=== PATIENT | female | born 1985 | race African-American/Black ===

== ENCOUNTER 2020-12-14 15:16 | Emergency (ER) | payer OTHER ==
[2020-12-14 15:28] VITALS: BMI 36.2
[2020-12-14 17:05] VITALS: BP 110/61; TEMP 98.5
[2020-12-14 17:59] VITALS: PULSE 107
== END 2020-12-14 17:52 | disposition home or self-care (01) ==
LOC: JER 15:16
DX: R00.0 Tachycardia, unspecified (principal)
CPT/HCPCS: 93005; 93010; 99281-25

== ENCOUNTER 2020-12-19 05:00 | Inpatient (IN) | payer OTHER ==
[2020-12-19] MEDS ORDERED: DEXTROSE 5%-LACTATED RINGERS 1,000 ML IV SCH (05:30)
[2020-12-19 06:26] LABS: BASO % 0.1 % (0-2.0); HEMATOCRIT 29.5 % (32.4-45.2); HEMOGLOBIN 9.8 GM/dL (10.7-15.3); LYMPH % 7.4 % (8-40); MCH 25.7 pg (25.7-33.7); MCHC 33.2 g/dl (32.0-36.0); MEAN CELL VOLUME 77.5 fl (80-96); MEAN PLT VOLUME 8.9 fl (7.5-11.1); MONO % 3.7 % (3.8-10.2); NEUT % 88.8 % (42.8-82.8); PLATELET COUNT 376 K/MM3 (134-434); RBC 3.81 M/mm3 (3.60-5.2); RDW 18.5 % (11.6-15.6); WHITE BLOOD COUNT 16.1 K/mm3 (4.0-10.0)
[2020-12-19 06:31] LABS: INR 1.05 (0.83-1.09); PROTHROMBIN TIME (PATIENT) 12.7 SEC (9.7-13.0)
[2020-12-19 06:34] LABS: ACTIVATED PTT 28.7 SECONDS (25.2-36.5)
[2020-12-19 06:49] LABS: CALCIUM 8.6 mg/dL (8.5-10.1)
[2020-12-19 06:51] LABS: BLOOD UREA NITROGEN 6.9 mg/dL (7-18)
[2020-12-19 06:53] LABS: CREATININE 0.6 mg/dL (0.55-1.3)
[2020-12-19] MEDS ORDERED: FENTANYL/BUPIVACAINE/NS/PF - PCEA - 50 ML DISP.SYRIN EP ONE (07:08)
[2020-12-19] MEDS ORDERED: ELECTROLYTE-148 SOLN 1,000 ML IV SCH ×3 (07:15→09:15)
[2020-12-19] MEDS ORDERED: BUTORPHANOL TARTRATE 2 MG/ML VIAL ONE ×2 (07:18→12:42)
[2020-12-19] MEDS ORDERED: PROMETHAZINE HCL 25 MG/1 ML VIAL ONE ×2 (07:18→12:42)
[2020-12-19] MEDS ORDERED: PROMETHAZINE HCL 25 MG/1 ML VIAL IVPB ONE ×2 (07:20→12:30)
[2020-12-19] MEDS ORDERED: BUTORPHANOL TARTRATE 2 MG/ML VIAL IVPB ONE ×2 (07:20→12:30)
[2020-12-19 07:22] VITALS: BMI 35.2
[2020-12-19] MEDS ORDERED: OXYTOCIN 30 UNITS in 0.9% NS 30 UNIT/500 ML INFUS.BAG IVPB ONE (08:20)
[2020-12-19] MEDS ORDERED: PENICILLIN G POTASSIUM 20,000,000 (20Mm) UNITS VIAL IVPB ONE (11:13)
[2020-12-19] MEDS ORDERED: PENICILLIN G POTASSIUM 20,000,000 (20Mm) UNITS VIAL IVPB SCH (11:30)
[2020-12-19] MEDS ORDERED: PENICILLIN G POTASSIUM 5,000,000 UNIT in DEXTROSE 5%-WATER - 250 ML IVPB ONE (12:00)
[2020-12-19] MEDS ORDERED: OXYTOCIN 30 UNITS in 0.9% NS 30 UNIT/500 ML INFUS.BAG IVPB SCH (16:00)
[2020-12-19] MEDS ORDERED: PENICILLIN G POTASSIUM 2,500,000 UNIT in DEXTROSE 5%-WATER - 250 ML IVPB SCH (16:00)
[2020-12-19] MEDS ORDERED: PCA PUMP NR ONE (17:52)
[2020-12-19] MEDS ORDERED: BUPIVACAINE HCL/PF 0.25% (2.5MG/ML) 10 ML VIAL ONE (18:23)
[2020-12-19] MEDS ORDERED: NALOXONE HCL 0.4 MG/ML VIAL IVPUSH PRN ×2 (18:29→18:30)
[2020-12-19] MEDS ORDERED: FENTANYL/BUPIVACAINE/NS/PF - PCEA - 50 ML DISP.SYRIN EP SCH (18:30)
[2020-12-19] MEDS ORDERED: LIDOCAINE HCL 1% PRESERVATIVE FREE - 30ML VIAL ONE (19:15)
[2020-12-19] MEDS ORDERED: OXYTOCIN 20 UNITS in 0.9% NS 20 UNIT/1,000 ML INFUS.BAG IV ONE (19:15)
[2020-12-19] MEDS: metoPROLOL SUCCINATE 25 MG TAB.SR.24H (FP) PO SCH (20:38)
[2020-12-19 23:24] LABS: CORD BASE EXCESS -6.7 mmol/L (0-2); CORD HCO3 21.1 mmHg (20-29); CORD PCO2 51.4 mmHg (30-78); CORD pH 7.232 (7.14-7.44)
[2020-12-20] MEDS ORDERED: WITCH HAZEL 50% (TUCKS) 40 PAD/JAR PAD TP PRN (01:32)
[2020-12-20] MEDS ORDERED: IBUPROFEN 600 MG TABLET (FP) PO PRN (01:32)
[2020-12-20] MEDS ORDERED: BENZOCAINE 28 GM HEMORRHOIDAL OINTMENT TP PRN (01:32)
[2020-12-20] MEDS ORDERED: BENZOCAINE 20% 57 GM BOTTLE TP PRN (01:32)
[2020-12-20] MEDS ORDERED: BISACODYL 10 MG SUPP.RECT RC PRN (01:32)
[2020-12-20] MEDS ORDERED: IBUPROFEN 600 MG TABLET (FP) PO ONE (01:55)
[2020-12-20] MEDS ORDERED: ACETAMINOPHEN 325 MG TABLET (FP) ONE (01:55)
[2020-12-20] MEDS: ACETAMINOPHEN 325 MG TABLET (FP) PO PRN (02:04)
[2020-12-20] MEDS: FERROUS SO4 325 MG TABLET (FP) PO SCH ×3 (09:18→18:00)
[2020-12-20] MEDS: metoPROLOL SUCCINATE 25 MG TAB.SR.24H (FP) PO SCH ×2 (09:19→21:34)
[2020-12-20] MEDS: PRENATAL VITAMINS W/ FOLIC ACID TABLET (FP) PO SCH (09:19)
[2020-12-20] MEDS: IBUPROFEN 400 MG TABLET (FP) PO PRN ×2 (16:26→21:34)
[2020-12-21] MEDS: FERROUS SO4 325 MG TABLET (FP) PO SCH ×3 (07:36→17:28)
[2020-12-21 08:53] LABS: BASO % 0.3 % (0-2.0); EOS % 0.7 % (0-4.5); HEMATOCRIT 27.4 % (32.4-45.2); MCH 25.9 pg (25.7-33.7); MEAN CELL VOLUME 78.4 fl (80-96); MEAN PLT VOLUME 8.5 fl (7.5-11.1); MONO % 6.4 % (3.8-10.2); NEUT % 72.6 % (42.8-82.8); PLATELET COUNT 343 K/MM3 (134-434); RBC 3.49 M/mm3 (3.60-5.2); RDW 18.6 % (11.6-15.6); WHITE BLOOD COUNT 16.8 K/mm3 (4.0-10.0)
[2020-12-21 09:43] LABS: ANISOCYTOSIS 2+; MACROCYTOSIS 0; PLATELET ESTIMATE NORMAL
[2020-12-21] MEDS: metoPROLOL SUCCINATE 25 MG TAB.SR.24H (FP) PO SCH ×2 (09:49→21:35)
[2020-12-21] MEDS: PRENATAL VITAMINS W/ FOLIC ACID TABLET (FP) PO SCH (09:57)
[2020-12-21] MEDS: ACETAMINOPHEN 325 MG TABLET (FP) PO PRN (10:03)
[2020-12-21 21:44] VITALS: BP 132/82; PULSE 104; TEMP 98.5
== END 2020-12-21 23:12 | disposition home or self-care (01) | DRG 560 ==
LOC: JLDR 05:00 → J3W 12-20 02:49
PROVIDERS: ADMIT Obstetrics & Gynecology Maternal & Fetal Medicine; ATTEND Obstetrics & Gynecology Maternal & Fetal Medicine
PROC: 0HQ9XZZ Repair Perineum Skin, External Approach (ICD-10-PCS; principal; 2020-12-19)
PROC: 10D07Z6 Extraction of Products of Conception, Vacuum, Via Natural or Artificial Opening (ICD-10-PCS; 2020-12-19)
DX: O99.42 Diseases of the circulatory system complicating childbirth (principal); R00.0 Tachycardia, unspecified; O70.0 First degree perineal laceration during delivery; Z3A.38 38 weeks gestation of pregnancy; Z37.0 Single live birth
CPT/HCPCS: 36415; 36600; 59409; 72170-TC-FY; 80048; 82803; 85025; 85610; 85730; 86762; 86850; 86900; 86901; 87340; 93306-TC; 97116-GP; 97161-GP; C9803; U0003; U0005

== ENCOUNTER 2022-06-07 10:30 | Inpatient (IN) | payer OTHER ==
[2022-06-07] MEDS ORDERED: morphine SULFATE 4 MG/ML VIAL IVPB ONE ×2 (11:57→21:30)
[2022-06-07 12:03] LABS: BASO % 0.2 % (0-2.0); HEMATOCRIT 36.1 % (32.4-45.2); HEMOGLOBIN 12.2 GM/dL (10.7-15.3); LYMPH % 12.1 % (8-40); MCH 27.1 pg (25.7-33.7); MCHC 33.8 g/dl (32.0-36.0); MEAN CELL VOLUME 80.2 fl (80-96); MEAN PLT VOLUME 9.2 fl (7.5-11.1); MONO % 5.6 % (3.8-10.2); NEUT % 82.1 % (42.8-82.8); PLATELET COUNT 286 10^3/uL (134-434); RDW 16.6 % (11.6-15.6); WHITE BLOOD COUNT 6.3 K/mm3 (4.0-10.0)
[2022-06-07 12:06] LABS: PROTHROMBIN TIME (PATIENT) 11.5 SEC (9.7-13.0)
[2022-06-07] MEDS: DEXTROSE 5%-LACTATED RINGERS 1,000 ML IV SCH (12:15)
[2022-06-07 12:24] LABS: BLOOD UREA NITROGEN 8.3 mg/dL (7-18)
[2022-06-07 12:26] LABS: CREATININE 0.7 mg/dL (0.55-1.3)
[2022-06-07] MEDS ORDERED: morphine SULFATE 4 MG/ML VIAL ONE ×2 (13:01→21:40)
[2022-06-07 13:52] VITALS: BMI 34.2
[2022-06-07] MEDS ORDERED: OXYTOCIN 30 UNITS in 0.9% NS 30 UNIT/500 ML INFUS.BAG IVPB SCH ×2 (21:15→22:45)
[2022-06-07] MEDS ORDERED: PROMETHAZINE HCL 25 MG/1 ML VIAL IVPB ONE (21:30)
[2022-06-07] MEDS ORDERED: SODIUM CHLORIDE 500 ML IV STA (21:31)
[2022-06-07] MEDS ORDERED: PROMETHAZINE HCL 25 MG/1 ML VIAL ONE (21:40)
[2022-06-07] MEDS ORDERED: OXYTOCIN 30 UNITS in 0.9% NS 30 UNIT/500 ML INFUS.BAG IVPB ONE (23:00)
[2022-06-08] MEDS ORDERED: OXYTOCIN 20 UNITS in 0.9% NS 20 UNIT/1,000 ML INFUS.BAG IV ONE (00:01)
[2022-06-08] MEDS ORDERED: LIDOCAINE HCL 1% PRESERVATIVE FREE - 30ML VIAL ONE (00:01)
[2022-06-08] MEDS ORDERED: WITCH HAZEL 50% (TUCKS) 40 PAD/JAR PAD TP PRN (00:40)
[2022-06-08] MEDS ORDERED: ACETAMINOPHEN 325 MG TABLET (FP) PO PRN (00:40)
[2022-06-08] MEDS ORDERED: BENZOCAINE 20% 57 GM BOTTLE TP PRN (00:40)
[2022-06-08] MEDS ORDERED: BENZOCAINE 28 GM HEMORRHOIDAL OINTMENT TP PRN (00:40)
[2022-06-08] MEDS ORDERED: OXYTOCIN 20 UNITS in 0.9% NS 20 UNIT/1,000 ML INFUS.BAG IV SCH (00:45)
[2022-06-08 00:47] LABS: CORD BASE EXCESS -1.7 mmol/L (0-2); CORD HCO3 23.9 mmHg (20-29); CORD PCO2 43.3 mmHg (30-78); CORD pH 7.36 (7.14-7.44)
[2022-06-08] MEDS: IBUPROFEN 600 MG TABLET (FP) PO PRN ×3 (02:15→17:32)
[2022-06-08] MEDS ORDERED: IBUPROFEN 600 MG TABLET (FP) PO ONE (02:18)
[2022-06-08] MEDS: FERROUS SO4 325 MG TABLET (FP) PO SCH ×3 (09:00→17:32)
[2022-06-08] MEDS: PRENATAL VITAMINS W/ FOLIC ACID TABLET (FP) PO SCH (09:10)
[2022-06-09] MEDS: FERROUS SO4 325 MG TABLET (FP) PO SCH ×3 (09:00→17:26)
[2022-06-09 09:42] LABS: BASO % 0.3 % (0-2.0); EOS % 0.4 % (0-4.5); HEMATOCRIT 33.8 % (32.4-45.2); LYMPH % 23.7 % (8-40); MCH 26.3 pg (25.7-33.7); MCHC 32.7 g/dl (32.0-36.0); MEAN CELL VOLUME 80.3 fl (80-96); MEAN PLT VOLUME 9.7 fl (7.5-11.1); MONO % 9.6 % (3.8-10.2); PLATELET COUNT 284 10^3/uL (134-434); RBC 4.21 M/mm3 (3.60-5.2); RDW 16.4 % (11.6-15.6); WHITE BLOOD COUNT 9.8 K/mm3 (4.0-10.0)
[2022-06-09] MEDS: PRENATAL VITAMINS W/ FOLIC ACID TABLET (FP) PO SCH (10:59)
[2022-06-09] MEDS: IBUPROFEN 600 MG TABLET (FP) PO PRN (11:06)
[2022-06-09] MEDS ORDERED: SENNOSIDES/DOCUSATE COMBO (SENNA PLUS) TABLET (UD) PO PRN (22:00)
[2022-06-09] MEDS: DEXTROSE 5%-LACTATED RINGERS 1,000 ML IV SCH (22:13)
[2022-06-09 22:27] VITALS: RESP 16
[2022-06-10] MEDS: IBUPROFEN 600 MG TABLET (FP) PO PRN (01:50)
[2022-06-10] MEDS: FERROUS SO4 325 MG TABLET (FP) PO SCH ×2 (08:04→12:21)
[2022-06-10 08:43] VITALS: BP 120/85; PULSE 99; TEMP 98.3
[2022-06-10] MEDS: PRENATAL VITAMINS W/ FOLIC ACID TABLET (FP) PO SCH (09:39)
== END 2022-06-10 12:50 | disposition home or self-care (01) | DRG 560 ==
LOC: JLDR 10:30 → J3W 06-08 03:14
PROVIDERS: ADMIT Obstetrics & Gynecology Maternal & Fetal Medicine; ATTEND Obstetrics & Gynecology Maternal & Fetal Medicine
PROC: 10907ZC Drainage of Amniotic Fluid, Therapeutic from Products of Conception, Via Natural or Artificial Opening (ICD-10-PCS; 2022-06-07)
PROC: 10E0XZZ Delivery of Products of Conception, External Approach (ICD-10-PCS; principal; 2022-06-08)
PROC: 0HQ9XZZ Repair Perineum Skin, External Approach (ICD-10-PCS; 2022-06-08)
DX: O42.02 Full-term premature rupture of membranes, onset of labor within 24 hours of rupture (principal); O10.92 Unspecified pre-existing hypertension complicating childbirth; O70.0 First degree perineal laceration during delivery; Z3A.39 39 weeks gestation of pregnancy; Z37.0 Single live birth
CPT/HCPCS: 36415; 36600; 59409; 80048; 82803; 85025; 85610; 85730; 86780; 86850; 86900; 86901; 88307-TC; C9803-CS; U0003; U0005